=== PATIENT | male | born 1955 | race Caucasian/White ===

== ENCOUNTER → 2019-12-17 08:57 | Outpatient (BNVA) | payer MEDICARE, OTHER, SELFPAY | PROVIDERS: Family Provider Family Medicine; Visit Provider Podiatrist Foot & Ankle Surgery | DX: S99.911A Unspecified injury of right ankle, initial encounter (principal); S82.891A Other fracture of right lower leg, initial encounter for closed fracture; S82.831A Other fracture of upper and lower end of right fibula, initial encounter for closed fracture; M95.8 Other specified acquired deformities of musculoskeletal system | CPT/HCPCS: 73590 ==

== ENCOUNTER 2019-12-17 13:59 | Outpatient (CLI) | payer MEDICARE, OTHER, SELFPAY | END 2019-12-17 14:00 | disposition home or self-care (01) | LOC: SPT 14:00 | PROVIDERS: Family Provider Family Medicine; Visit Provider Podiatrist Foot & Ankle Surgery | DX: Z46.89 Encounter for fitting and adjustment of other specified devices (principal); S82.891D Other fracture of right lower leg, subsequent encounter for closed fracture with routine healing; X58.XXXD Exposure to other specified factors, subsequent encounter; S99.911A Unspecified injury of right ankle, initial encounter; S82.891A Other fracture of right lower leg, initial encounter for closed fracture; S82.831A Other fracture of upper and lower end of right fibula, initial encounter for closed fracture; M95.8 Other specified acquired deformities of musculoskeletal system | CPT/HCPCS: 73590; L4361 ==

== ENCOUNTER → 2019-12-31 13:03 | Outpatient (BNVA) | payer MEDICARE, OTHER, SELFPAY | PROVIDERS: Family Provider Family Medicine; Visit Provider Podiatrist Foot & Ankle Surgery | DX: S82.831A Other fracture of upper and lower end of right fibula, initial encounter for closed fracture (principal); X58.XXXA Exposure to other specified factors, initial encounter | CPT/HCPCS: 73610 ==

== ENCOUNTER → 2020-01-14 13:49 | Outpatient (BNVA) | payer MEDICARE, OTHER, SELFPAY | PROVIDERS: Family Provider Family Medicine; Visit Provider Podiatrist Foot & Ankle Surgery | DX: M95.8 Other specified acquired deformities of musculoskeletal system (principal); S82.831A Other fracture of upper and lower end of right fibula, initial encounter for closed fracture; S82.891A Other fracture of right lower leg, initial encounter for closed fracture; S99.911A Unspecified injury of right ankle, initial encounter; X58.XXXA Exposure to other specified factors, initial encounter | CPT/HCPCS: 73610 ==

== ENCOUNTER → 2020-01-29 14:42 | Outpatient (BNVA) | payer MEDICARE, OTHER, SELFPAY | PROVIDERS: Family Provider Family Medicine; Visit Provider Podiatrist Foot & Ankle Surgery | DX: S82.891A Other fracture of right lower leg, initial encounter for closed fracture (principal); S82.831A Other fracture of upper and lower end of right fibula, initial encounter for closed fracture; M95.8 Other specified acquired deformities of musculoskeletal system; X58.XXXA Exposure to other specified factors, initial encounter | CPT/HCPCS: 73610 ==

== ENCOUNTER 2020-01-29 15:55 | Outpatient (CLI) | payer MEDICARE, OTHER, SELFPAY | END 2020-01-29 15:56 | disposition home or self-care (01) | LOC: SPT 15:56 | PROVIDERS: Family Provider Family Medicine; Visit Provider Podiatrist Foot & Ankle Surgery | DX: Z46.89 Encounter for fitting and adjustment of other specified devices (principal); S82.891D Other fracture of right lower leg, subsequent encounter for closed fracture with routine healing; X58.XXXD Exposure to other specified factors, subsequent encounter; S82.891A Other fracture of right lower leg, initial encounter for closed fracture; S82.831A Other fracture of upper and lower end of right fibula, initial encounter for closed fracture; M95.8 Other specified acquired deformities of musculoskeletal system; X58.XXXA Exposure to other specified factors, initial encounter | CPT/HCPCS: 73610; 97760; L1902 ==

== ENCOUNTER → 2020-02-18 00:01 | Outpatient (BNVA) | payer MEDICARE, OTHER, SELFPAY | PROVIDERS: Family Provider Family Medicine; Visit Provider Podiatrist Foot & Ankle Surgery | DX: S93.421D Sprain of deltoid ligament of right ankle, subsequent encounter (principal); W13.8XXD Fall from, out of or through other building or structure, subsequent encounter; M95.8 Other specified acquired deformities of musculoskeletal system | CPT/HCPCS: 73610; 73630 ==

== ENCOUNTER 2020-02-18 15:23 | Outpatient (CLI) | payer MEDICARE, OTHER, SELFPAY | END 2020-02-18 15:24 | disposition home or self-care (01) | LOC: SPT 15:23 | PROVIDERS: Family Provider Family Medicine; Visit Provider Podiatrist Foot & Ankle Surgery | DX: Z46.89 Encounter for fitting and adjustment of other specified devices (principal); M76.821 Posterior tibial tendinitis, right leg | CPT/HCPCS: 97760; L1902 ==

== ENCOUNTER → 2020-04-17 14:05 | Outpatient (BNVA) | payer MEDICARE, OTHER, SELFPAY | PROVIDERS: Family Provider Family Medicine; Visit Provider Podiatrist Foot & Ankle Surgery | DX: M25.571 Pain in right ankle and joints of right foot (principal); M95.8 Other specified acquired deformities of musculoskeletal system; S93.421D Sprain of deltoid ligament of right ankle, subsequent encounter; W13.8XXD Fall from, out of or through other building or structure, subsequent encounter | CPT/HCPCS: 73610 ==